=== PATIENT | female | born 1955 | race Caucasian/White ===

== ENCOUNTER 2025-06-17 12:41 | Outpatient (CLI) | payer MEDICARE, MEDICAID, SELFPAY ==
--- NOTE | ~2025-06-17 | CT_ITS ---
EXAMINATION: CT sinus wo con DATE: 06/17/2025 13:09 INDICATION: Chronic maxillary sinusitis TECHNIQUE: Computed tomography (CT) of the paranasal sinuses was performed without intravenous contrast. The dose-length product was 268.51 mGy-cm. Automated exposure control and iterative reconstruction technique were employed. COMPARISON: None FINDINGS: There is mucosal thickening of the right sphenoid and maxillary sinuses. No significant mucosal thickening of the frontal or ethmoid sinuses. No air-fluid levels. No mucoperiosteal reaction. Leftward nasal septal deviation. Mastoids are pneumatized. Neurostimulator leads are identified. Leftward nasal septal deviation. Ostiomeatal units are patent. IMPRESSION: 1. Mild-moderate sinus disease. Reviewed, dictated and finalized at location O. SUPERVISOR
== END 2025-06-17 12:42 | disposition home or self-care (01) ==
LOC: MICIMG 12:42
PROVIDERS: PCP Otolaryngology; Visit Provider Otolaryngology
DX: J32.0 Chronic maxillary sinusitis (principal); J32.2 Chronic ethmoidal sinusitis; G96.01 Cranial cerebrospinal fluid leak, spontaneous
CPT/HCPCS: 70486